=== PATIENT | male | born 1980 | race Caucasian/White ===

== ENCOUNTER 2023-10-14 18:09 | Emergency (ER) | payer SELFPAY ==
[~2023-10-14] VITALS: Ht 167.6 cm; Wt 75.0 kg
[2023-10-14 18:14] VITALS: O2SAT 100
[2023-10-14] MEDS: BLOOD SUGAR DIAGNOSTIC STRIP TEST ONE (19:02)
[2023-10-14] MEDS ORDERED: PHEN97.22 MT (19:44)
[2023-10-14] MEDS ORDERED: KEPP500 MT (19:45)
[2023-10-14] MEDS ORDERED: LEVETIRACETAM 500MG TABLET PO ONE (19:45)
[2023-10-14] MEDS: PHENOBARBITAL 100MG TABLET PO ONE (20:26)
[2023-10-14] MEDS: LEVETIRACETAM 500MG TABLET PO NR (20:27)
[2023-10-14 20:29] VITALS: BP 126/90; PULSE 82; RESP 25; TEMP 98.4
== END 2023-10-14 20:42 | disposition home or self-care (01) ==
LOC: ER 18:09
DX: S01.511A Laceration without foreign body of lip, initial encounter (principal); G40.909 Epilepsy, unspecified, not intractable, without status epilepticus; F19.90 Other psychoactive substance use, unspecified, uncomplicated; X58.XXXA Exposure to other specified factors, initial encounter; Y93.89 Activity, other specified; Y92.89 Other specified places as the place of occurrence of the external cause; Y99.8 Other external cause status
CPT/HCPCS: 99284